=== PATIENT | female | born 1950 | race Caucasian/White ===

== ENCOUNTER → 2016-11-27 17:14 | Outpatient (CLI) | payer OTHER ==
[2015-12-30 11:12] VITALS: BMI 33.5
[~2016-11-27 17:14] MED LIST: COZAAR100 MG PO; NEXIUM20 MG PO; NEXIUM40 MG PO; NORVASC5 MG PO; PREDNISONE5 MG PO; PRINIVIL20 MG PO; PROTONIX40 MG PO; ULTRAM50 MG PO; ZOCOR40 MG PO
== END | disposition home or self-care (01) ==
LOC: D.MAMMO 15:30
DX: Z12.31 Encounter for screening mammogram for malignant neoplasm of breast (principal)

== ENCOUNTER → 2016-12-20 17:00 | Outpatient (CLI) | payer OTHER ==
[2015-12-30 11:12] VITALS: BMI 33.5
== END | disposition home or self-care (01) ==
LOC: D.MAMMO 14:30
DX: R92.8 Other abnormal and inconclusive findings on diagnostic imaging of breast (principal)

== ENCOUNTER → 2017-04-25 18:52 | Outpatient (CLI) | payer OTHER ==
[2015-12-30 11:12] VITALS: BMI 33.5
== END | disposition home or self-care (01) ==
LOC: D.MAMMO 09:30 → D.US 10:30 → D.MAMMO 14:00
DX: R92.8 Other abnormal and inconclusive findings on diagnostic imaging of breast (principal)

== ENCOUNTER → 2017-04-29 08:53 | Outpatient (CLI) | payer OTHER ==
[2015-12-30 11:12] VITALS: BMI 33.5
== END | disposition home or self-care (01) ==
LOC: D.US 08:53
DX: N60.02 Solitary cyst of left breast (principal)

== ENCOUNTER 2017-05-16 05:22 | Day surgery (SDC) | payer OTHER ==
[~2017-05-16] VITALS: Ht 160 cm; Wt 88.9 kg
--- NOTE | ~2017-05-16 | OP ---
PATIENT NAME: ANISHA QURESHI MEDICAL RECORD: [id number] :54 LOCATION:D.OPS ADMISSION DATE: SURGEON: HAY HOWARD MD DATE OF OPERATION: 05/16/2017 PREOPERATIVE DIAGNOSES: 1. Left breast cancer. 2. Hypertension. 3. Hyperlipidemia. 4. Arthritis, on chronic corticosteroid. POSTOPERATIVE DIAGNOSES: 1. Left breast cancer. 2. Hypertension. 3. Hyperlipidemia. 4. Arthritis, on chronic corticosteroid. PROCEDURE: Left breast needle local lumpectomy with left axillary sentinel lymph node biopsy. SURGEON: Hay Howard MD REPORT OF PROCEDURE: Preoperatively, the patient had a needle localization along with lymphoscintigraphy performed. The patient was then taken to the operating room and the left breast and axilla were prepped and draped in sterile fashion. The needle was extending out of the left superior lateral breast in the upper outer quadrant. A skin incision was made by this wire. We then dissected through the subcutaneous tissue into the breast tissue. A core of breast tissue was taken out of the left upper outer quadrant extending down and completely engulfing the needle. Once the specimen was removed, it was sent to mammography and the wire was noted to be in good position along with the clip, which was in the noted left breast lesion. At this point, we inspected the area and assured there was no sign of any active bleeding. We then packed this wound and approached the patient's left axilla. A skin incision was made in the inferior aspect of the left axilla. Electrocautery was used to dissect through the subcutaneous tissue and through the fascia until we entered the axillary space. Using a mammotome, Neoprobe we were able to localize the area of highest radiotracer concentration in this area, I found 2 lymph nodes, one of these was registering 3400 and other one was registering 1600. We took these 2 lymph nodes out using clips on the lymphatic tissues. Once we had these out, we sent them off for permanent specimen. We inspected the axilla for any bleeding and also inspected for any further sentinel lymph nodes and there were none that required removal. At this point, we irrigated out both wounds with sterile water. The subcutaneous tissues were reapproximated with interrupted 3-0 Vicryls and the skin incisions were closed with running subcutaneous 5-0 Monocryl. COMPLICATIONS: None. CONDITION: Stable. ANESTHESIA: General endotracheal. BLOOD LOSS: Minimal. OPERATIVE REPORT [id number] ANISHA QURESHI TRANSINT:[id number] Voice Confirmation ID: [id number] DOCUMENT ID: [id number] HAY HOWARD MD at 1137 CC: ETHEL FONTAINE MD and ABIODUN ALEX [id number] DICTATION DATE: 05/16/17 1346 PAPER CLEANER: 05/16/17 1402 [facility] [place] 05/16/17 [place] [id number]
[2017-05-16 06:07] LABS: BASOPHILS 0.2 % (0-2); EOSINOPHILS 2.1 % (0-7); HEMATOCRIT 42.3 % (36.0-48.0); HEMOGLOBIN 13.8 g/dL (12-16); IMMATURE GRANULOCYTES 0.2 % (0-5); LYMPHOCYTES 21.1 % (15-50); MCHC 32.6 g/dL (31.0-37.0); MEAN PLATELET VOLUME 10.4 fL (7.4-10.4); MONOCYTES 10.9 % (2-11); NEUTROPHILS 65.5 % (40-80); PLATELET COUNT 339 10x3/uL (130-400); RDW 13.5 % (11.5-14.5); WBC 5.6 10x3/uL (4.8-10.8)
[2017-05-16 06:14] LABS: APTT 39.3 SECONDS (22.8-39.4); INR 0.97 (0.85-1.17); PROTIME 12.5 SECONDS (11.6-15.0)
[2017-05-16 06:19] LABS: CALC OSMOLALITY 282 mosm/kg (275-300); CALCIUM 9.4 mg/dL (8.5-10.1); CARBON DIOXIDE 26.9 mmol/L (21.0-32.0); CHLORIDE - SERUM 105 mmol/L (98-107); CREATININE - SERUM 0.8 mg/dL (0.6-1.3); GLUCOSE 96 mg/dL (74-106); POTASSIUM - SERUM 3.6 mmol/L (3.5-5.1); SODIUM 142 mmol/L (136-145); UREA NITROGEN 12 mg/dL (7-18); eGFR NON AFRICAN AMERICAN 76 mL/min (90-120)
[2017-05-16 06:40] VITALS: BP 130/74; Ht 160 cm; Wt 88.9 kg
[2017-05-16] MEDS ORDERED: POTASSIUM99 M1 PO (06:53)
[2017-05-16] MEDS ORDERED: FISH OIL 1,0001 CA1 PO (06:53)
[2017-05-16] MEDS ORDERED: BIOTIN5 MG PO (06:54)
[2017-05-16] MEDS ORDERED: MULTIPLE VITAMI1 TA1 PO (06:55)
[2017-05-16] MEDS ORDERED: HYDROCODONE-APA1 TAB PO (13:42)
== END 2017-05-16 16:30 | disposition home or self-care (01) ==
LOC: D.OPS 05:22 → D.NM 07:30 → D.PAN 07:30 → D.OPS 07:30
PROVIDERS: Anesthesiology; Surgery
DX: C50.412 Malignant neoplasm of upper-outer quadrant of left female breast (principal); I10 Essential (primary) hypertension; E78.5 Hyperlipidemia, unspecified; M19.90 Unspecified osteoarthritis, unspecified site; Z01.812 Encounter for preprocedural laboratory examination; K21.9 Gastro-esophageal reflux disease without esophagitis

== ENCOUNTER → 2017-05-28 11:13 | Outpatient (CLI) | payer OTHER ==
[2017-05-16 06:40] VITALS: BMI 34.8
[~2017-05-28 11:13] MED LIST changes: +BIOTIN5 MG PO; +FISH OIL 1,0001 CA1 PO; +HYDROCODONE-APA1 TAB PO; +HYZAAR 100-12.51 TAB PO; +MULTIPLE VITAMI1 TA1 PO; +POTASSIUM99 M1 PO
== END | disposition home or self-care (01) ==
LOC: D.CT 11:13
DX: C50.412 Malignant neoplasm of upper-outer quadrant of left female breast (principal)

== ENCOUNTER 2017-06-06 05:22 | Day surgery (SDC) | payer OTHER ==
[~2017-06-06] VITALS: Ht 160 cm; Wt 88.0 kg
--- NOTE | ~2017-06-06 | OP ---
PATIENT NAME: ANISHA QURESHI MEDICAL RECORD: [id number] :54 LOCATION:D.OPS ADMISSION DATE: SURGEON: HAY HOWARD MD DATE OF OPERATION: 06/06/2017 PREOPERATIVE DIAGNOSES: 1. Left breast cancer. 2. Hypertension. 3. Arthritis. 4. Hypercholesterolemia. POSTOPERATIVE DIAGNOSES: 1. Left breast cancer. 2. Hypertension. 3. Arthritis. 4. Hypercholesterolemia. PROCEDURE: 1. Right subclavian vein port placement. 2. Fluoroscopic interpretation. 3. Left axillary lymph node core biopsy. 4. Left axillary lymph node dissection. SURGEON: Hay Howard MD REPORT OF PROCEDURE: The patient's chest and left axilla were prepped and draped in sterile fashion. Initially, we performed an ultrasound-guided FNA of the left axillary lymph node. Upon performing this, the tissue was not very good for specimen, so a core biopsy was performed. Three cores of tissue were removed with a Everton-Cut biopsy device. These cores were sent off for frozen specimen. At that point, they came back positive for malignancy. During that time, the specimen was frozen. The right subclavian vein port was placed. A needle was used to cannulate the right subclavian vein and the guidewire was advanced with ease. Fluoro was used to note that the wire was in good position in the venous system. A skin incision was made on the right superolateral chest and a subcutaneous pouch was made over the pectoral fascia. The catheter was tunneled between this pouch and the wire exit site. The port was then sutured to the pectoral fascia using interrupted 3-0 Prolenes times 2. The catheter was cut with a beveled tip at 23 cm. The dilator trocar device was placed over the wire and the wire and dilator were removed. The catheter tip was advanced through the trocar with ease until the fluoro was used to note that it was resting in good position in the superior vena cava. The catheter aspirated nonpulsatile dark blood and flushed easily with heparinized saline. The subcutaneous tissues were reapproximated with interrupted 3-0 Vicryl and the skin was closed with running subcutaneous 5-0 Monocryl. 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 The previous left axillary incision from recent sentinel lymph node biopsy was reopened. As we entered the axillary space, we performed an axillary lymph node dissection. This was performed from posterior to the pectoral muscle to the chest wall and posteriorly to the latissimus dorsi. We continued this dissection up to the axillary artery and vein. I was able to visualize one of the nerves in the area. I never could find a second nerve. I did multiple passes with clamping the tissues to see if I got any reaction and never got any positive reaction that this was present. It appeared that the long thoracic OPERATIVE REPORT [id number] ANISHA QURESHI SYL nerve was intact and I could never find the thoracodorsal nerve. At this point, there was no sign of any active bleeding in the tissues. We irrigated out the wound thoroughly with normal saline and then inserted a 15-Albanian Ozzie drain. This was sutured into place with 3-0 nylon. The subcutaneous tissues were reapproximated with interrupted 3-0 Vicryl and the skin was closed with running subcutaneous 5-0 Monocryl. At this point, all the incisions were dressed appropriately. COMPLICATIONS: None. CONDITION: Stable. ANESTHESIA: General endotracheal. BLOOD LOSS: 30 mL. TRANSINT:[id number] Voice Confirmation ID: [id number] DOCUMENT ID: [id number] HAY HOWARD MD at 1319 CC: ETHEL FONTAINE MD and ABIODUN ALEX [id number] DICTATION DATE: 06/06/17 1025 PC SUPPORT SPECIALIST: 06/06/[address] [facility] 06/06/[address] [id number]
[2017-06-06 06:00] LABS: BASOPHILS 0.5 % (0-2); EOSINOPHILS 2.5 % (0-7); HEMATOCRIT 40.7 % (36.0-48.0); HEMOGLOBIN 13.2 g/dL (12-16); IMMATURE GRANULOCYTES 0.3 % (0-5); LYMPHOCYTES 24.8 % (15-50); MCH 29.9 pg (26.0-34.0); MCHC 32.4 g/dL (31.0-37.0); MCV 92.3 fL (80.0-100.0); MEAN PLATELET VOLUME 10.2 fL (7.4-10.4); MONOCYTES 11.3 % (2-11); NEUTROPHILS 60.6 % (40-80); PLATELET COUNT 312 10x3/uL (130-400); RBC 4.41 10x6/uL (4.00-5.40); RDW 13.1 % (11.5-14.5)
[2017-06-06 06:39] LABS: APTT 36.3 SECONDS (22.8-39.4); INR 0.96 (0.85-1.17); PROTIME 12.4 SECONDS (11.6-15.0)
[2017-06-06 06:43] LABS: CALC OSMOLALITY 283 mosm/kg (275-300); CALCIUM 9.3 mg/dL (8.5-10.1); CARBON DIOXIDE 27.7 mmol/L (21.0-32.0); CHLORIDE - SERUM 103 mmol/L (98-107); CREATININE - SERUM 0.7 mg/dL (0.6-1.3); GLUCOSE 108 mg/dL (74-106); POTASSIUM - SERUM 3.9 mmol/L (3.5-5.1); SODIUM 142 mmol/L (136-145); UREA NITROGEN 13 mg/dL (7-18); eGFR NON AFRICAN AMERICAN 89 mL/min (90-120)
[2017-06-06 07:23] VITALS: BP 103/64; Ht 160 cm; Wt 88.0 kg
[2017-06-06] MEDS ORDERED: HYDROCODONE-APA1 TAB PO (10:18)
== END 2017-06-06 14:30 | disposition home or self-care (01) ==
LOC: D.OPS 05:22
PROVIDERS: Anesthesiology; Nurse Practitioner Acute Care
DX: C50.912 Malignant neoplasm of unspecified site of left female breast (principal); I10 Essential (primary) hypertension; K44.9 Diaphragmatic hernia without obstruction or gangrene; K21.9 Gastro-esophageal reflux disease without esophagitis; E78.00 Pure hypercholesterolemia, unspecified; M06.9 Rheumatoid arthritis, unspecified; Z01.812 Encounter for preprocedural laboratory examination

== ENCOUNTER → 2017-06-11 08:33 | Outpatient (CLI) | payer OTHER ==
[2017-06-06 07:23] VITALS: BMI 34.4
--- NOTE | ~2017-06-11 | EC ---
PATIENT:ANISHA QURESHI DATE OF SERVICE: 06/11/17 SEX: F MEDICAL RECORD: [id number] DATE OF : 54 [facility] AGE OF PATIENT: 66 ADMISSION DATE: 06/11/17 REFERRING PHYSICIAN: INTERPRETING PHYSICIAN: NORRIS ANTHONY MD ECHOCARDIOGRAM REPORT ECHO CHARGES 4 ECHO COMPLETE CLINICAL DIAGNOSIS: CHEMOTHERAPY/ ASSESS EF ECHOCARDIOGRAPHIC MEASUREMENTS (adult normal given) AC root (d.<3.7cm) 3.1 cm LV Septum d (<1.2 cm> 1.3 cm Valve Excursion 1.7 cm LV Septum (systole) 1.5 cm Left Atria (s.<4.0cm> 3.4 cm LVPW d(<1.2cm) 1.4 cm RV (d.<2.3cm) 4.2 cm LVPW (sytole) 1.7 cm LV diastole(<5.6CM) 5.1 cm MV E-F(>70mm/sec) cm LV systole 3.7 cm LVOT Diameter 1.8 cm MV exc.(>10mm) 1.3 cm Est.ejection fraction (50-75%) % Pericardial Effusion N DOPPLER: LVIT cm/sec A 103 cm/sec E 74.0 cm/sec LA cm/sec RVSP 25 mmHg LVOT 126 cm/sec AOP1/2T m/s Asc. Ao 178 cm/sec RVOT 97 cm/sec RA cm/sec PA 132 cm/sec AV Gradient Peak 12.61mmHg AV Mean 6.39 mmHg AV Area 2.2 cm MV Gradient Peak 5.52 mmHg MV Mean 2.25 mmHg MV Area cm COMMENTS: Ed Transporter: Julia JANE Mobile Application Development Lead: 1 Dr. Anthony TAPE# PACS DATE OF SERVICE: 06/11/2017 PROCEDURE: Echocardiogram. FINDINGS: 1. Left ventricular chamber size is within normal limits. Left ventricular systolic function is normal. Overall ejection fraction estimated at 55%. 2. Left atrium is within normal limits at 3.4 cm. Right atrium and right ventricle chamber sizes are mildly dilated. 3. Valvular structures have normal structure and motion. ECHOCARDIOGRAM REPORT [id number] ANISHA QURESHI 4. Doppler interrogation only reveals trace tricuspid regurgitation, no other valvular insufficiency or stenosis and pulmonary systolic pressure is estimated at 25 mmHg. 5. No evidence of pericardial effusion or left ventricular thrombus. TRANSINT:[id number] Voice Confirmation ID: [id number] DOCUMENT ID: [id number] NORRIS ANTHONY MD at 1202 CC: [id number] DICTATION DATE: 06/11/17 1215 QA ENGINEER: 06/11/17 1231 DEP CLI 06/11/[address] [facility] [address] [place] [address]
== END | disposition home or self-care (01) ==
LOC: D.ECHO 08:33
DX: C50.412 Malignant neoplasm of upper-outer quadrant of left female breast (principal)

== ENCOUNTER → 2017-10-22 12:48 | Outpatient (CLI) | payer OTHER ==
[2017-06-06 07:23] VITALS: BMI 34.4
== END | disposition home or self-care (01) ==
LOC: D.CT 12:48
DX: C50.412 Malignant neoplasm of upper-outer quadrant of left female breast (principal)

== ENCOUNTER → 2018-03-04 07:20 | Outpatient (CLI) | payer OTHER ==
[2017-06-06 07:23] VITALS: BMI 34.4
== END | disposition home or self-care (01) ==
LOC: D.CT 07:20
DX: C50.412 Malignant neoplasm of upper-outer quadrant of left female breast (principal); I11.0 Hypertensive heart disease with heart failure; E87.5 Hyperkalemia; K21.9 Gastro-esophageal reflux disease without esophagitis

== ENCOUNTER → 2018-05-15 17:19 | Outpatient (CLI) | payer OTHER ==
[2017-06-06 07:23] VITALS: BMI 34.4
== END | disposition home or self-care (01) ==
LOC: D.MAMMO 15:00
DX: C50.412 Malignant neoplasm of upper-outer quadrant of left female breast (principal)

== ENCOUNTER → 2018-05-28 11:40 | Outpatient (CLI) | payer OTHER ==
[2017-06-06 07:23] VITALS: BMI 34.4
== END | disposition home or self-care (01) ==
LOC: D.US 08:00
PROVIDERS: ATTEND Surgery
DX: N63.20 Unspecified lump in the left breast, unspecified quadrant (principal)

== ENCOUNTER 2018-11-12 09:00 | Outpatient (CLI) | payer OTHER ==
[2017-06-06 07:23] VITALS: BMI 34.4
== END 2018-11-12 10:00 | disposition home or self-care (01) ==
LOC: D.MAMMO 09:00
PROVIDERS: ATTEND Internal Medicine Medical Oncology
DX: C50.412 Malignant neoplasm of upper-outer quadrant of left female breast (principal); I10 Essential (primary) hypertension; E78.2 Mixed hyperlipidemia; K21.9 Gastro-esophageal reflux disease without esophagitis

== ENCOUNTER → 2018-11-27 08:23 | Outpatient (CLI) | payer OTHER ==
[2017-06-06 07:23] VITALS: BMI 34.4
--- NOTE | 2018-11-28 10:47 | EC ---
PATIENT:ANISHA QURESHI DATE OF SERVICE: 11/27/18 SEX: F MEDICAL RECORD: [id number] DATE OF : 54 LOCATION:[facility] AGE OF PATIENT: 68 ADMISSION DATE: 11/27/18 REFERRING PHYSICIAN: INTERPRETING PHYSICIAN: NORRIS ANTHONY MD ECHOCARDIOGRAM REPORT ECHO CHARGES 4 ECHO COMPLETE Date: 11/27/18 CLINICAL DIAGNOSIS: BREAST CANCER/CHEMOTHERAPY/ EDEMA ECHOCARDIOGRAPHIC MEASUREMENTS (adult normal given) AC root (d.<3.7cm) 3.3 cm LV Septum d (<1.2 cm> 1.2 cm Valve Excursion 1.6 cm LV Septum (systole) 1.6 cm Left Atria (s.<4.0cm> 3.9 cm LVPW d(<1.2cm) 1.1 cm RV (d.<2.3cm) 2.5 cm LVPW (sytole) 1.7 cm LV diastole(<5.6CM) 5.3 cm MV E-F(>70mm/sec) cm LV systole 3.3 cm LVOT Diameter 1.7 cm MV exc.(>10mm) cm Est.ejection fraction (50-75%) % DOPPLER: LVIT cm/sec A 110 cm/sec E 80.0 cm/sec LA cm/sec RVSP 43.0 mmHg LVOT 103 cm/sec AOP1/2T m/s Asc. Ao 91 cm/sec RVOT 80.0 cm/sec RA cm/sec PA 109 cm/sec AV Gradient Peak 15.0 mmHg AV Mean 6.7 mmHg AV Area 1.4 cm MV Gradient Peak 5.6 mmHg MV Mean 1.8 mmHg MV Area cm COMMENTS: Mandrel Cleaner: Asha MADRID Lab Rep: 1 Dr. Anthony TAPE# PACS Pericardial Effusion N DATE OF SERVICE: 11/27/2018 ECHOCARDIOGRAM DATE OF SERVICE: 11/27/2018 FINDINGS: 1. Left ventricular chamber size is within normal limits. Left ventricular systolic function is normal at 55%. 2. Left atrium, right atrium, and right ventricular chamber sizes are within ECHOCARDIOGRAM REPORT [id number] ANISHA QURESHI normal limits. 3. Valvular structures have normal structure and motion. 4. Doppler interrogation reveals trace mitral regurgitation, moderate tricuspid regurgitation. No other valvular insufficiency or stenosis. Pulmonary systolic pressure is estimated at 43 mmHg. 5. No evidence of pericardial effusion or left ventricular thrombus. TRANSINT:[id number] Voice Confirmation ID: [id number] DOCUMENT ID: [id number] NORRIS ANTHONY MD at 1047 CC: [id number] DICTATION DATE: 11/27/18 1255 ARCHITECTURAL ENGINEER: 11/27/18 1337 DEP CLI 11/27/18 [place] [id number]
== END | disposition home or self-care (01) ==
LOC: D.ECHO 08:23
PROVIDERS: ATTEND Internal Medicine Medical Oncology
DX: C50.412 Malignant neoplasm of upper-outer quadrant of left female breast (principal); I10 Essential (primary) hypertension; E78.2 Mixed hyperlipidemia; K21.9 Gastro-esophageal reflux disease without esophagitis; C79.51 Secondary malignant neoplasm of bone; C78.7 Secondary malignant neoplasm of liver and intrahepatic bile duct; D70.1 Agranulocytosis secondary to cancer chemotherapy; D64.81 Anemia due to antineoplastic chemotherapy; R60.0 Localized edema

== ENCOUNTER → 2019-01-05 09:58 | Outpatient (CLI) | payer OTHER ==
[2017-06-06 07:23] VITALS: BMI 34.4
== END | disposition home or self-care (01) ==
LOC: D.NM 09:58
PROVIDERS: ATTEND Internal Medicine Medical Oncology
DX: C50.412 Malignant neoplasm of upper-outer quadrant of left female breast (principal)